=== PATIENT | male | born 1985 | race Asian ===

== ENCOUNTER → 2023-08-18 09:26 | Outpatient (CLI) | payer OTHER, SELFPAY ==
--- NOTE | 2023-08-18 | DI.MRI.S_ITS ---
PROCEDURE: MR CHEST WO CON INDICATIONS: Other injury of muscle and tendon of front wall TECHNIQUE: Axial and oblique coronal T1 spin echo and T2 spin echo with fat saturation, sagittal T1 spin echo and STIR acquired through the affected chest wall. COMPARISON: None. FINDINGS: Image quality: Excellent. Soft tissues: The sternal and clavicular heads of the pectoralis major muscle demonstrate normal bulk and internal signal. The pectoralis major tendon appears intact as it inserts onto the humeral shaft along the lateral lip of the intertubercular groove. The nearby quadrilateral space appears normal on axial images. No soft tissue fluid collections. Other visualized muscles appear intact, including the pectoralis minor and coracobrachialis. Bones: Visualized bony structures of the chest wall and upper arm appear intact, without focal marrow edema. IMPRESSION: Right pectoralis major muscle appears intact without intramuscular edema or muscle or tendon tearing is seen. Approved by: Jesus Alberto Davenport M.D. on 08/20/2023 at 9:41
== END ==
PROVIDERS: Referring Provider Internal Medicine; Visit Provider Internal Medicine
DX: S29.091A Other injury of muscle and tendon of front wall of thorax, initial encounter (principal); X58.XXXA Exposure to other specified factors, initial encounter
CPT/HCPCS: 71550